=== PATIENT | male | born 1940 | race Caucasian/White ===

== ENCOUNTER 2016-08-02 13:39 | Outpatient (RCR) | payer MEDICARE ==
--- OUTSIDE RECORDS SUMMARY | 2016-07-14 15:02 | XMS REPORT | Continuity of Care Document ---
Author Author [facility] Organization [facility] Address Unknown Phone Unavailable Care Team Providers Care Fresh Food Manager Name Role Phone Ray Maguire PCP [phone] Source Comments Some departments are not documenting in the electronic medical record. If you do not see the information that you expected, contact Release of Information in the Health Information Management department at [phone] for further assistance in locating additional records.[facility] Active Allergies and Adverse Reactions Allergen Noted Date Severity Reactions Comments Sulfa (Sulfonamide 09/10/2015 Low UNKNOWN Antibiotics) Current Medications Prescription Sig. Disp. Refills Start End Date Status Date cholecalciferol (VITAMIN Take 1,000 Units by mouth Active D-3) 1,000 units tablet daily. amLODIPine (NORVASC) 5 mg Take 5 mg by mouth at Active tablet bedtime daily. nitroglycerin (NITROSTAT) Place 1 Tab under tongue 25 Tab 3 11/25/19 Active 0.4 mg tablet every 5 minutes as needed 16 for Chest Pain. vitamins, B complex tab Take 1 Tab by mouth Active daily. losartan (COZAAR) 25 mg Take 25 mg by mouth Active tablet daily. rivaroxaban (XARELTO) 15 Take 15 mg by mouth twice Active mg tablet daily. Take with food. carvedilol (COREG) 12.5 Take 1 Tab by mouth twice 180 Tab 3 04/13/20 Active mg tablet daily. Take with food. 16 potassium chloride TAKE 2 TABLETS BY MOUTH 30 Tab 11 04/19/20 Active (K-DUR) 10 mEq tablet ONCE DAILY FOR 3 DAYS, 16 THEN DECREASE TO 1 TABLET DAILY prednisone (DELTASONE) 10 1 daily for 4 weeks 28 Tab 0 05/10/20 Active mg tablet 16 Active Problems Problem Noted Date S/P ablation of ventricular arrhythmia 02/08/2016 PVC (premature ventricular contraction) 02/08/2016 Screening for cardiovascular condition 09/10/2015 Overview: 10/17/13 Echo ([facility]): Overall hyperdynamic LV systolic function with EF 75%. Mild aortic insufficiency. 10/07/14 Echo ([facility]): Overall normal LV systolic function, EF 70%. 01/02/15 Carotid duplex ([facility]): Mild bilateral plaque without hemodynamically significant narrowing. PVC's (premature ventricular contractions) Overview: 07/30/14 Holter ([facility]): Small amount of ventricular ectopies. Moderate sinus bradycardia. 12/16/14 Holter ([facility]): 7373 ventricular ectopies, represented 10% of total beat count. Some ventricular beats occurred in bigeminal cycles. 02/08/16 PVC ablation: successful RFA of PVCs originating from anterior mitral annulus near the septal side LVOT base septal side PVCs present as well-unable to eliminate these by ablation today. CAD (coronary artery disease) Overview: 02/2008 Cardiac cath ([facility]): Diffuse disease in right posterior descending artery, normal left main coronary artery, 40% ostial left circumflex artery, posterolateral obtuse marginal branch total occlusion, moderate mid LAD disease, severe distal LAD disease, 90% apical lesion. 07/2012 Cardiolite stress test ([facility]): mild inferolateral ischemia consistent with posterolateral obtuse marginal branch occlusion. 09/2013 Cardiolite stress test ([facility]): normal 11/02/15 Nuclear stress test ([facility]): No evidence of myocardial infarction. No evidence of pharmacologically induced myocardial ischemia. Normal resting LV cavity size and normal wall motion. Dyslipidemia Palpitations COPD (chronic obstructive pulmonary disease) (HCC) Most Recent Encounters Date Type Specialty Providers Description 07/25/2016 [facility] Ludin Kam MD Colon polyp Encounter 06/22/2016 Prep for Case Gastroenterology Valorie Arcos APRN 06/22/2016 Telephone Cardiology Aleksandra Stone RN 06/21/2016 Ancillary Cardiology Traci Lemons, PVC's ( premature Orders MD ventricular contractions) (Primary Dx) 06/20/2016 Hospital Radiology Traci Lemons, Encounter MD 06/20/2016 Screening Form 05/13/2016 Documentation Cardiology Jennifer Guzmán Test/procedure - PET scan due June 2016. 05/10/2016 Refill Cardiology Mariia Whitaker RN Medication Refill 04/19/2016 Refill Cardiology Traci Lemons, Medication Refill - aPt BLEVINS 04/18/2016 Surgery Ludin Kam MD Canceled COLONOSCOPY with EMR 04/13/2016 Office Visit Cardiology Traci Lemons, PVC's - post ablation MD follow up 04/13/2016 Documentation Cardiology Jennifer Guzmán Records Request - [facility] [phone] Social History Tobacco Use Types Packs/Day Years Used Date Former Smoker Cigarettes 0.1 8 Quit: 06/12/1985 Smokeless Tobacco: Never Used Alcohol Use Drinks/Week oz/Week Comments Yes occas beer Last Filed Vital Signs Vital Sign Reading Time Taken Blood Pressure 158/94 04/13/2016 2:07 PM CDT Pulse 83 04/13/2016 2:07 PM CDT Temperature 36.6 C (97.9 F) 02/09/2016 9:33 AM CDT Respiratory Rate 18 11/26/2015 2:21 PM CDT Height 1.753 m (5' 9") 06/20/2016 1:21 PM BAIT PACKER Weight 102.059 kg (225 lb) 06/20/2016 1:21 PM BAIT PACKER Body Mass Index 33.21 06/20/2016 1:21 PM BAIT PACKER Oxygen Saturation 96% 02/09/2016 9:33 AM CDT Plan of Care Date Type Specialty Providers Description 07/21/2016 Appointment Cardiology Traci Lemons MD [address] [place] [address] [phone] (Fax) 07/25/2016 Surgery Ludin Kam MD COLONOSCOPY with EMR [address] [place] [address] [phone] (Fax) Health Maintenance Due Date Last Done Comments Physical (Comprehensive) 12/17/1947 Exam Pertussis Vaccine 12/17/1950 Tetanus Vaccine 12/17/1956 Shingles Vaccine 1999 Prevnar/Pneumovax (#1) 12/17/2004 Influenza Vaccine 02/11/2016 Results from Last 3 Months NM PET HEART METABOLISM SARCOID (06/20/2016 2:17 PM) Impressions No evidence of myocarditis. Approved by Zuleika Sethi D.O. on 06/20/2016 4:32 PM By my electronic signature, I attest that I have personally reviewed the images for this examination and formulated the interpretations and opinions expressed in this report Finalized by Donta Blevins M.D. on 06/20/2016 5:05 PM. Dictated by Zuleika Sethi D.O. on 06/20/2016 4:29 PM. Narrative PET HEART SARCOID EVALUATION WITH FDG: Clinical History: Premature ventricular contractions. Post myocarditis treatment. Evaluate coronary artery/cardiac structures, morphology and viability. TECHNIQUE: Patient underwent an 18 hour fast and was then injected with 15.3mCi of 18- Flourine FDG.Tomographic imaging of the heart was obtained using attenuation correction PET scanning.Findings were displayed as tomographic imaging and polar maps. FINDINGS: Limited CT images of the chest demonstrate three-vessel coronary artery calcification. Mild aortic atherosclerotic calcification. No mediastinal or definite hilar adenopathy. No increased FDG uptake throughout the lungs. There is no abnormally increased FDG uptake throughout the left or right ventricular myocardium. ECG/QRS (04/13/2016 2:11 PM) Component Value Range QRS DURATION 86
--- OUTSIDE RECORDS SUMMARY | 2016-08-02 13:42 | XMS REPORT | Continuity of Care Document ---
Author Author [facility] Organization [facility] Address Unknown Phone Unavailable Care Team Providers Care Machine Edge Bander Name Role Phone Ray Maguire PCP [phone] Source Comments Some departments are not documenting in the electronic medical record. If you do not see the information that you expected, contact Release of Information in the Health Information Management department at [phone] for further assistance in locating additional records.[facility] Active Allergies and Adverse Reactions Allergen Noted [...] 16 THEN DECREASE TO 1 TABLET DAILY atorvastatin (LIPITOR) 20 Take 20 mg by mouth Active mg tablet daily. prednisone (DELTASONE) 10 1 daily for 4 weeks 28 Tab 0 05/10/2003/01 Discontin mg tablet 16 17 ued Active Problems Problem Noted Date S/P ablation of ventricular arrhythmia 02/08/2016 PVC (premature ventricular contraction) 02/08/2016 Screening for cardiovascular condition 09/10/2015 Overview: 10/17/13 Echo ([facility]): Overall hyperdynamic LV systolic function with EF 75%. Mild aortic insufficiency. 10/07/14 Echo ([facility]): Overall normal LV systolic function, EF 70%. 01/02/15 Carotid duplex ([facility]): Mild bilateral plaque without hemodynamically significant narrowing. PVC's (premature ventricular contractions) Overview: 07/30/14 Holter ([facility]): Small amount of ventricular ectopies. Moderate sinus bradycardia. 12/16/14 Holter ([facility]): 7373 ventricular ectopies, represented 10% of total beat count. Some ventricular beats occurred in bigeminal cycles. 09/25/15 Cardiac PET: Focus of increased FDG uptake involving the mid and basal portion of the posterolateral VL wall, suspicious for acute inflammation or infection, such as sarcoidosis. 02/08/16 PVC ablation: successful RFA of PVCs originating from anterior mitral annulus near the septal side LVOT base septal side PVCs present as well-unable to eliminate these by ablation today. 06/20/16 Cardiac PET: No evidence of myocarditis. CAD (coronary artery disease) Overview: 02/2008 Cardiac cath ([facility]): Diffuse disease in right posterior descending artery, normal left main coronary artery, 40% ostial left circumflex artery, posterolateral obtuse marginal branch total occlusion, moderate mid LAD disease, severe distal LAD disease, 90% apical lesion. 07/2012 Cardiolite stress test ([facility]): mild inferolateral ischemia consistent with posterolateral obtuse marginal branch occlusion. 09/2013 Cardiolite stress test ([facility]): normal 11/02/15 Nuclear stress test ([facility]): No evidence of myocardial infarction. No evidence of pharmacologically induced myocardial ischemia. Normal resting LV cavity size and normal wall motion. Dyslipidemia Palpitations COPD (chronic obstructive pulmonary disease) (HCC) Most Recent Encounters Date Type Specialty Providers Description 07/25/2016 [facility] Esther Kam MD Colon polyp Encounter 07/25/2016 Endo Rslt Enc Brijesh Moncada MD 07/25/2016 Anesthesia Sophia Grigsby MD Event 07/25/2016 Surgery Esther Kam MD COLONOSCOPY with EMR 07/21/2016 Office Visit Cardiology Traci Lemons, PVC's - 3 month follow up 06/22/2016 Prep for Case Gastroenterology Valorie Arcos, PIPELINE OPERATOR 06/22/2016 Telephone Cardiology Aleksandra Stone RN 06/21/2016 Ancillary Cardiology Traci Lemons, PVC's ( premature Orders MD ventricular contractions) (Primary Dx) 06/20/2016 Hospital Radiology Traci Lemons, Encounter MD 06/20/2016 Screening Form 05/13/2016 Documentation Cardiology Jennifer Guzmán Test/procedure - PET scan due June 2016. 05/10/2016 Refill Cardiology Mariia Whitaker, development educator Refill Social History Tobacco Use Types Packs/Day Years Used Date Former Smoker Cigarettes 0.1 8 Quit: 06/12/1985 Smokeless Tobacco: Never Used Alcohol Use Drinks/Week oz/Week Comments Yes occas beer Last Filed Vital Signs Vital Sign Reading Time Taken Blood Pressure 137/68 07/25/2016 11:30 AM SEAPORT PLANNING MANAGER Pulse 53 07/25/2016 11:30 AM SEAPORT PLANNING MANAGER Temperature 36.3 C (97.3 F) 07/25/2016 11:00 AM SEAPORT PLANNING MANAGER Respiratory Rate 18 11/26/2015 2:21 PM CDT Height 1.753 m (5' 9") 07/25/2016 9:21 AM SEAPORT PLANNING MANAGER Weight 100.699 kg (222 lb) 07/25/2016 9:21 AM SEAPORT PLANNING MANAGER Body Mass Index 32.77 07/25/2016 9:21 AM SEAPORT PLANNING MANAGER Oxygen Saturation 98% 07/25/2016 11:30 AM SEAPORT PLANNING MANAGER Plan of Care Health Maintenance Due Date Last Done Comments Physical (Comprehensive) 12[birth year]17/1947 Exam Pertussis Vaccine 12/17/1950 Tetanus Vaccine 12/17/1956 Shingles Vaccine 1999 Prevnar/Pneumovax (#1) 12/17/2004 Influenza Vaccine 02/11/2016 Procedures from Last 3 Months Procedure Name Priority Date/Time Associated Diagnosis Comments TELEMETRY STRIPS-SCAN 07/26/2016 Results for this 11:47 AM SEAPORT PLANNING MANAGER procedure are in the results section. COLONOSCOPY POLYPECTOMY 07/25/2016 Colon polyp STOMA 10:30 AM SEAPORT PLANNING MANAGER COLONOSCOPY with EMR 07/25/2016 Colon polyp 10:30 AM SEAPORT PLANNING MANAGER Results from Last 3 Months TELEMETRY STRIPS-SCAN (07/26/2016 11:47 AM) Narrative Ordered by an unspecified provider. SURGICAL PATHOLOGY (07/25/2016 1:05 PM) Component Value Range PATHOLOGY REPORT [email or web address] Mary Ochoa MD, PhD, Director of Anatomic Pathology Department of Pathology and Laboratory Medicine [address] [place] [id number] Surgical Pathology Office: [phone] SURGICAL PATHOLOGY REPORT NAME: AKBAR PAYNE SURG PATH #: [id number] MR #: [id number] SPECIMEN CLASS: SR BILLING #: [id number] ALT ID #: LOCATION: [facility] DATE OF PROCEDURE: 07/25/2016 AGE: 75 SEX: M DATE RECEIVED: 07/25/2016 : 1940 TIME RECEIVED: 13:05 PHYSICIAN: ESTHER AMIN DATE OF REPORT: 07/28/2016 COPY TO: DATE OF PRINTIN07/28/2016 ################################################## ###################### Final Diagnosis: A. Colonic mucosa, "cecal polyp", biopsy: Tubular adenoma. B. Colonic mucosa, "transverse polyps", biopsy: Tubular adenomas. C. Colonic mucosa, "rectal polyps", biopsy: Tubular adenoma. Hyperplastic polyps. Attestation: By this signature, I attest that I have personally formulated the final interpretation expressed in this report and that the above diagnosis is based upon my examination of the slides and/or other material indicated in this report. +++Electronically Signed Out By+++ amberlyw/07/25/2016 Interpreted by: Michelle Mesa MD, Attending Physician Seamus Hunter M.D. Resident 07/28/2016 ################################################## ###################### Material Received: A: cecal polyp B: transverse polyps C: rectal polyps History: 75-year-old male with a history of colon polyp. Gross Description: A. Received in formalin labeled "cecal polyp" is a 1.2 x 0.6 x 0.6 cm aggregate of peters-brown soft tissue fragments. The specimen is entirely submitted in cassette A1. (tn) B. Received in formalin labeled "transverse polyps" is a 1.4 x 0.7 x 0.6 cm aggregate of peters-brown soft tissue fragments. The specimen is entirely submitted in cassette B1. (tn) C. Received in formalin labeled "rectal polyps" is a 0.7 x 0.6 x 0.2 cm aggregate of peters-brown soft tissue fragments with fecal material. The specimen is entirely submitted in cassette C1. (tn) peters/07/25/2016 Seamus Hunter M.D. Resident COLONOSCOPY (07/25/2016 10:01 AM) Component Value Range Provation Report Patient Name: Jayna Ko Procedure Date: 07/25/2016 10:01 AM CSN: [id number] Date of : 1940 Gender: Male Attending Physician: Esther Kam MD Procedure: Colonoscopy Indications: Fo r therapy of adenomatous polyps in the colon Providers: Esther Kam MD (Doctor), Kai Sosa MD (Fellow), Loida Ambrosio RN (Nurse), Karla Arce (Nurse) Referring Physician: Brijesh Moncada Medications: Pr opofol per Anesthesia Complications: No immediate complications. Procedure: Pre-Anesthesia Assessment: - Prior to the procedure, a History and Physical was performed, and patient medications and allergies were reviewed. The patient's tolerance of previous anesthesia was also reviewed. The risks and benefits of the procedure and the sedation options and risks were discussed with the patient. All questions were answered, and informed consent was obtained. Prior Anticoagulants: The patient has taken Xarelto (rivaroxaban), last dose was 5 days prior to procedure. ASA Grade Assessment: III - A patient with severe systemic disease. After reviewing the risks and benefits, the patient was deemed in satisfactory condition to undergo the procedure. After I obtained informed consent, the scope was passed under direct vision. Throughout the procedure, the patient's blood pressure, pulse, and oxygen saturations were monitored continuously. The was introduced through the anus and advanced to the cecum, identified by appendiceal orifice and ileocecal valve. The colonoscopy was performed without difficulty. The patient tolerated the procedure well. The ileocecal valve, appendiceal orifice, and rectum were photographed. The quality of the bowel preparation was good. Findings: The digital rectal exam was normal. Six sessile polyps were found in the rectum, in the transverse colon and in the cecum. The polyps were 3 to 12 mm in size. These polyps were removed with a combination of cold snare, cold biopsy and hot snare. Cecal polyp was raised and lifted with saline injection. Resection and retrieval were complete. Verification of patient identification for the specimen was done by the nurse and precision lens technician using the patient's name and medical record number. Estimated blood loss was minimal. Retroflexion not done for narrow vault. Good end-on views obtained and hemorrhoids noted. Impression: - Six 3 to 12 mm polyps in the rectum, in the transverse colon and in the cecum. Resected and retrieved. Estimated Blood Loss: Estimated blood loss was minimal. Recommendation: - Patient has a contact number available for emergencies. The signs and symptoms of potential delayed complications were discussed with the patient. Return to normal activities tomorrow. Written discharge instructions were provided to the patient. - Resume previous diet. - Continue present medications. - Repeat colonoscopy in 3 years for surveillance. - Restart Xarelto in 48 hours Scope In: 10:14:38 AM Scope Out: 10:59:12 AM Scope Withdrawal Time 0 hours 30 minutes 27 seconds Total Procedure Duration Time 0 hours 44 minutes 34 seconds Procedure Code(s): --- Professional --- 10512, Colonoscopy, flexible; with removal of tumor(s), polyp(s), or other lesion(s) by snare technique 26775, Colonoscopy, flexible; with directed submucosal injection(s), any substance Diagnosis Code(s): --- Professional --- K62.1, Rectal polyp D12.3, Benign neoplasm of transverse colon (hepatic flexure or splenic flexure) D12.0, Benign neoplasm of cecum D12.6, Benign neoplasm of colon, unspecified CPT copyright 2015 [employer]. All rights reserved. The codes documented in this report are preliminary and upon chef de froid review may be revised to meet current compliance requirements. Attending Participation: I was present and participated during the entire procedure, including non-payan portions. MD Esther Cox MD 07/25/2016 12:05:57 PM The attending physician has electronically signed and finalized this document. Kai Sosa MD Number of Addenda: 0 Note Initiated On: 07/25/2016 10:01 AM BLOOD BANK SAMPLE HOLD (07/25/2016 9:35 AM) Component Value Range BB Sample hold IN LAB BASIC METABOLIC PANEL (07/25/2016 9:35 AM) Component Value Range Sodium 139 137-147 MMOL/L Potassium 4.3Comment: SLT HEMOLYSIS 3.5-5.1 MMOL/L Chloride 104 98-110 MMOL/L CO2 25 21-30 MMOL/L Anion Gap 10 3-12 Glucose 92 70-100 MG/DL Blood Urea Nitrogen 9 7-25 MG/DL Creatinine 0.91 0.4-1.24 MG/DL Calcium 9.2 8.5-10.6 MG/DL eGFR Non >60Comment: >60 mL/min The eGFR is not validated for use in drug dosing adjustments. Continue to use estimated creatinine clearance per dosing reference text. Please contact the Clinical Pharmacist for questions. eGFR >60Comment: >60 mL/min The eGFR is not validated for use in drug dosing adjustments. Continue to use estimated creatinine clearance per dosing reference text. Please contact the Clinical Pharmacist for questions. Specimen Blood CBC (07/25/2016 9:35 AM) Component Value Range White Blood Cells 4.2 (L) 4.5-11.0 K/UL RBC 4.75 4.4-5.5 M/UL Hemoglobin 15.4 13.5-16.5 GM/DL Hematocrit 46.8 40-50 % MCV 98.5 80-100 FL MCH 32.4 26-34 PG MCHC 32.9 32.0-36.0 G/DL RDW 12.6 11-15 % Platelet Count 238 150-400 K/UL MPV 8.3 7-11 FL Specimen Blood POC GLUCOSE (07/25/2016 9:31 AM) Component Value Range Glucose, POC 106 (H) 70-100 MG/DL ECG/QRS (07/21/2016 2:30 PM) Component Value Range QRS DURATION 90 NM PET HEART METABOLISM SARCOID (06/20/2016 2:17 [...]
== END 2016-10-31 | disposition home or self-care (01) ==
LOC: ONC 13:39
PROVIDERS: ATTEND Radiology Radiation Oncology
DX: C61 Malignant neoplasm of prostate (principal)
CPT/HCPCS: 76873; 99215

== ENCOUNTER 2016-12-22 11:29 | Outpatient (RCR) | payer MEDICARE | END 2017-03-11 | disposition home or self-care (01) | LOC: ONC 11:29 | PROVIDERS: ATTEND Radiology Radiation Oncology | DX: C61 Malignant neoplasm of prostate (principal) | CPT/HCPCS: 36415; 84153; 99213 ==